=== PATIENT | male | born 1960 | race Caucasian/White ===

== ENCOUNTER 2020-07-21 04:53 | Observation (INO) ==
--- OUTSIDE RECORDS SUMMARY | 2020-07-21 04:56 | External Medical Summary | Continuity of Care Document ---
:1960 Author Name Ling Knight, Provider Address Unavailable Unavailable , Care Team Providers Name Role Phone Rufus Perdomo PA-C Unavailable [email or web address] Collins Mims M.D. 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 Antonia Mims Quantity: 90 Refills: 1 Lisinopril 5 MG Oral Tablet; TAKE 1 TABLET DAILY. Antonia Mims Quantity: 90 Refills: 1 Atorvastatin Calcium 80 MG Oral Tablet; TAKE 1 TABLET DAILY. Antonia Mims Quantity: 90 Refills: 3 Pantoprazole Sodium 20 MG Oral Tablet Delayed Release; TAKE 1 TABLET DAILY. MEAGAN Yuan Start: 15-Apr-2015 Quantity: 30 Refills: 0 Nitrostat 0.4 MG Sublingual Tablet Sublingual; TAKE DIRECTED. MEAGAN Perdomo Start: 19-Nov-2015 Quantity: 25 Refills: 1 Aspirin 81 MG TABS; TAKE 1 TABLET DAILY. Refills: 0 traMADol HCl - 50 MG Oral Tablet; TAKE 1 TABLET EVERY 6 HOURS NEEDED FOR BREAKTHROUGH PAIN. Quantity: 120 Refills: 0 Spironolactone-HCTZ 25-25 MG Oral Tablet; TAKE 1 TABLE T DAILY. Antonia Mims Start: 26-Mar-2014 Quantity: 90 Refills: 3 Folic Acid TABS; TAKE 1 TABLET DAILY DIRECTED. Refills: 0 Iron TABS; TAKE 1 TABLET DAILY DIRECTED. Refills: 0 Vitamin C TABS Refills: 0 Procedures History of Knee Surgery Right Status: Co mpleted History of Diagnostic Cystoscopy Status: Completed History of Cath Stent 1 Distal Right Coronary Artery Status: Completed Immunizations Immunizations not documented Family History Mother Family history of chronic obstructive pulmonary disease (V17 .6) Status: Active (Z82.5) Family history of congestive heart failure (V17.49) (Z82.49) Status: Active Father Family history of Dementia in other disease classified elsew here Status: Active with behavioral disturbance (294.8) (F02.81) Social History - Smoking Status Never smoked tobacco Plan of Treatment Planned Observations Planned Goals not documented Results No Known Results Results not documented Encounters Appointment; Rufus Perdomo PA-C 22-Apr-2018 14:30 Encounter Diagnosis: Problem not documented
--- OUTSIDE RECORDS SUMMARY | 2020-07-21 04:56 | External Medical Summary | Continuity of Care Document ---
:1960 Author Name Ling Knight, Provider Address Unavailable Unavailable , Care Team Providers Name Role Phone Rufus Perdomo PA-C Unavailable [email or web address] Collins Mims M.D. Unavailable [email or web address] Lissy RHODES Unavailable [email or web address] NEWHOUSER Unavailable Unavailable Unavailable Unavailable Unavailable Assessments [...] Reactions No Known Drug Allergies (Allergy) Medications Aspirin 81 MG TABS; TAKE 1 TABLET DAILY. Refills: 0 traMADol HCl - 50 MG Oral Tablet; TAKE 1 TABLET EVERY 6 HOURS NEEDED FOR BREAKTHROUGH PAIN. Quantity: 120 Refills: 0 Clopidogrel Bisulfate 75 MG Oral Tablet; TAKE 1 TABLET DAILY. Antonia Mims Quantity: 90 Refills: 1 Lisinopril 5 MG Oral Tablet; TAKE 1 TABLET DAILY. Antonia Mims Quantity: 90 Refills: 1 Atorvastatin Calcium 80 MG Oral Tablet; TAKE 1 TABLET DAILY. Antonia Mims Quantity: 90 Refills: 3 Vitamin C TABS Refills: 0 Iron TABS; TAKE 1 TABLET DAILY DIRECTED. Refills: 0 Folic Acid TABS; TAKE 1 TABLET DAILY DIRECTED. Refills: 0 Spironolactone-HCTZ 25-25 MG Oral Tablet; TAKE 1 TABLE T DAILY. Antonia Mims Start: 26-Mar-2014 Quantity: 90 Refills: 3 Nitrostat 0.4 MG Sublingual Tablet Sublingual; TAKE DIRECTED. MEAGAN Perdomo Start: 19-Nov-2015 Quantity: 25 Refills: 1 Pantoprazole Sodium 20 MG Oral Tablet Delayed Release; TAKE 1 TABLET DAILY. MEAGAN Yuan Start: 15-Apr-2015 Quantity: 30 Refills: 0 Procedures History of Cath Stent 1 Distal Right Coronary Artery Status: Completed History of Diagnostic Cystoscopy Status: Completed History of Knee Surgery Right Status: Co mpleted Immunizations Immunizations not documented Family History Mother [...]
[2020-07-21 05:31] LABS: Basophils # (auto) 0.06 K/uL (0-0.2); Basophils % (auto) 0.6 %; Eosinophils # (auto) 0.28 K/uL (0-0.5); Eosinophils % (auto) 2.8 %; Hematocrit (blood only) 43.8 % (42-52); Hemoglobin 15.1 g/dL (14.0-18.0); Immature Granulocytes # (auto) 0.03 K/uL (0.00-0.02); Immature Granulocytes % (auto) 0.3 %; Lymphocytes # (auto) 3.38 K/uL (1.2-3.4); Lymphocytes % (auto) 34.2 %; Mean Corpuscular Hemoglobin 28.9 pg (25-34); Mean Corpuscular Hgb Conc 34.5 g/dL (32-36); Mean Corpuscular Volume 83.9 fL (80-100); Mean Platelet Volume 9.2 fL (7.4-10.4); Monocytes # (auto) 0.59 K/uL (0.11-0.59); Neutrophils # (auto) 5.55 K/uL (1.4-6.5); Neutrophils % (auto) 56.1 %; Platelet Count 296 K/uL (130-400); RDW Coefficient of Variation 14.9 % (11.5-14.5); RDW Standard Deviation 46.7 fL (36.4-46.3); Red Blood Count 5.22 M/uL (4.7-6.1); White Blood Count 9.89 K/uL (4.8-10.8)
--- NOTE | 2020-07-21 05:37 | Emergency Department Note ---
Impression & Plan Brain TIA, Hypertension ED Provider Note NAME: EVIN MONAE AGE: 60 SEX: M ARRIVES VIA: Walk-In INFORMANT: Patient, and the patient's ED PROVIDER(S): Blaire Alberts DO CHIEF COMPLAINT: Numbness to the right hand and the right side of the face PLAN: Disposition: Admitted to the [facility] service Condition: Good MEDICAL DECISION MAKING: This is a 60-year-old male patient who presents to the emergency department after awaking this morning with numbness to the right side of his face and right hand. CT scan of the brain and CTA of the head and neck were all negative. The patient's initial presenting blood pressure was quite high but then a pressure came down nicely on its own. The numbness in the face and the right hand resolved on his own. Patient blood pressure is well controlled on its own. [facility]. Triage Nursing notes reviewed and agree with them. Additional history obtained from his Prior medical records reviewed Vital Signs: reviewed and remarkable for hypertension Differential diagnosis: Hypertensive urgency, anxiety, TIA, CVA Diagnostics interpreted by me: ECG: Normal sinus rhythm at a rate of 78 with a right bundle branch block. There were no obvious signs of ischemia and no ST segment elevation. This was compared to an EKG from 06/2014 and was significantly different. Cardiac Monitoring: Normal sinus rhythm at a rate of 80 Laboratory studies: See below Imaging studies: As per stat rad CT brain: No intracranial hemorrhage, mass-effect or edema. No evidence of acute cortical stroke. Visualized sinuses and mastoid air cells are clear. CTA head: No evidence of large vessel occlusion. CTA neck: No evidence of high-grade stenosis or occlusion. Small right vertebral artery. Calcified and noncalcified pulmonary nodules. Consultations: Dr. Herrera-neurology HPI: 60/M arrives for evaluation of numbness to the right side of the face and right hand. Patient states that he was feeling well before he went to bed last night but awoke this morning with numbness in the right side of his face and to his right hand. The patient has never had symptoms like this in the past. He denies any weakness. ROS: See above HPI for pertinent positives & negatives. A total of 10 systems reviewed and were otherwise negative. 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 There is numbness noted to the right side of the patient's face with light touch. Pupils are equal, round, and reactive to light. Extraocular eye muscles are intact and sclera are anicteric. Ears - bilaterally patent canals with noninjected tympanic membranes and no evidence of hemotympanum. Nose - moist nasal mucosa without discharge. Mouth - moist buccal mucosa. Oropharynx is nonerythematous and there is no tonsillar exudate or edema noted. Neck: Supple; no JVD, nuchal rigidity, cervical lymphadenopathy, or auscultated bruits. Heart: Regular rate and rhythm. There is a normal S1 and S2 with no murmurs, clicks, or gallops appreciated. Lungs: Clear to auscultation bilaterally with no wheezes, rales, or rhonchi. Abdomen: Soft, completely nontender, nondistended, with good bowel sounds. There are no palpable pulsatile masses or hepatosplenomegaly. There is no guard ing, rigidity, or rebound noted. Extremities: No evidence of cyanosis, clubbing, or edema. There are easily palpable peripheral pulses. Neuro:The patient is awake and alert, oriented to day, time, and place. Muscle strength is 5/5 in all 4 extremities. The patient has equal dermatology technician strength and equal pedal push and pull. There are no cerebellar signs. The patient does have numbness noted to the right side of his face as there is a sensation difference between both sides of the face. He also has numbness noted to the ventral and dorsal aspect of the right hand. ED COURSE: Times/Reassessments: 0505: The patient was evaluated and C9. A complete history and physical was performed. A full stroke assessment was performed. A twelve- lead EKG was obtained as described above. An order was placed for continuous cardiac monitoring. The patient was in a normal sinus rhythm at a rate of [address] scan of the brain, CTA of the head and neck. These were all unremarkable. 0640: They were reviewed with neurology and Dr. Herrera recommended the patient be admitted to the hospital for evaluation. I spoke with the [facility] Hospitalist Blaire Alberts DO Past Med/Surg History Medical History (Updated 07/22/20 @ 09:27 by Blaire Alberts DO) CAD (coronary artery disease) BMS distal RCA Dr. Mims 09/23/13 Familial hypercholesteremia HTN (hypertension) Lumbar spinal stenosis Migraine Obesity LILIAN (obstructive sleep apnea) Pulmonary embolism Surgical History (Updated 07/21/20 @ 08:28 by Zahira Sotelo PA-C) History of cystoscopy History of total knee arthroplasty Ruptured, tendon, quadriceps Family History (Updated 07/21/20 @ 08:29 by Zahira Sotelo PA-C) Mother , 65 Diabetes Coronary heart disease Hypertension Father , 60s Alcoholism Social History (Updated 07/21/20 @ 08:30 by Zahira Sotelo PA-C) Smoking Status: Never smoker Tobacco Type: Cigars Hx Alcohol Use: Yes Alcohol Intake Frequency: Monthly or Less Hx Substance Use: No Preferred Language: [place] Beliefs That Will Affect Care: None marital status: Current Living Situation: Family current occupational status: employed current occupation: [employer] Other Information That Helps Us Care for You: No Feels Safe at Home: Yes Assistive Devices: None Allergies Allergies Allergy/AdvReac Type Severity Reaction Status Date / Time cat dander Allergy Intermediate Wheezing Verified 07/21/20 05:35 Home Meds Home Medications Medication Instructions Recorded Confirmed aspirin [Aspirin Low Dose] 81 mg PO DAILY 07/21/20 07/21/20 atorvastatin 80 mg PO HS 07/21/20 07/21/20 ezetimibe 10 mg PO DAILY 07/21/20 07/21/20 furosemide [Lasix] 40 mg PO DAILY 07/21/20 07/21/20 naproxen 500 mg PO Q12 PRN 07/21/20 07/21/20 nitroglycerin [Nitrostat] 0.4 mg SUBLINGUAL UD PRN 07/21/20 07/21/20 pantoprazole 20 mg PO DAILY 07/21/20 07/21/20 spironolacton-hydrochlorothiaz 1 tab PO DAILY 07/21/20 07/21/20 tramadol 50 mg PO Q6H PRN 07/21/20 07/21/20 Results & Data (ED) Vital Signs Vital Signs - 24 hr 07/21/20 04:57 07/21/20 05:08 07/21/20 05:15 Temperature 36.2 C L Temperature Source Temporal Artery Scan Pulse Rate 82 85 Pulse Rate from SpO2 Sensor Respiratory Rate 20 18 Respiratory Effort / Characteristics Non-Labored Spontaneous Respiratory Depth Normal Blood Pressure 151/98 H 211/88 H Blood Pressure Mean 115 129 Pulse Oximetry 97 95 98 Oxygen Delivery Method Room Air Room Air Room Air Sepsis New/Unexplained Change in Mental Status N/A Sepsis Action Taken by Nursing No Action Required 07/21/20 06:09 07/21/20 06:11 Temperature Temperature Source Pulse Rate 74 65 Pulse Rate from SpO2 Sensor 65 Respiratory Rate 18 15 Respiratory Effort / Characteristics Respiratory Depth Blood Pressure 120/66 Blood Pressure Mean 84 Pulse Oximetry 94 Oxygen Delivery Method Room Air Sepsis New/Unexplained Change in Mental Status Sepsis Action Taken by Nursing Laboratory Data Result diagrams: 07/21/20 05:20 07/22/20 07:05 Lab Results 07/21/20 07/21/20 07/21/20 Range/Units 05:20 05:20 05:20 WBC 9.89 (4.8-10.8) K/uL RBC 5.22 (4.7-6.1) M/uL Hgb 15.1 (14.0-18.0) g/dL Hct 43.8 (42-52) % MCV 83.9 (80-100) fL MCH 28.9 (25-34) pg MCHC 34.5 (32-36) g/dL RDW Std Deviation 46.7 H (36.4-46.3) fL RDW Coeff of Ira 14.9 H (11.5-14.5) % Plt Count 296 (130-400) K/uL MPV 9.2 (7.4-10.4) fL Immature Gran % (Auto) 0.3 % Neut % (Auto) 56.1 % Lymph % (Auto) 34.2 % [place] % (Auto) 6.0 % Eos % (Auto) 2.8 % Baso % (Auto) 0.6 % Neut # (Auto) 5.55 (1.4-6.5) K/uL Lymph # (Auto) 3.38 (1.2-3.4) K/uL [place] # (Auto) 0.59 (0.11-0.59) K/uL Eos # (Auto) 0.28 (0-0.5) K/uL Baso # (Auto) 0.06 (0-0.2) K/uL Immature Gran # (Auto) 0.03 H (0.00-0.02) K/uL PT 10.3 (9.0-12.0) Seconds INR 1.0 (0.9-1.1) APTT 28.1 (21.0-31.0) Seconds PTT Ratio 1.1 Sodium 139 (136-145) mmol/L Potassium 3.4 L (3.5-5.1) mmol/L Chloride 104 (98-107) mmol/L Carbon Dioxide 30 (21-32) mmol/L Anion Gap 5.0 (3-11) BUN 19 H (7-18) mg/dl Creatinine 1.06 (0.6-1.4) mg/dl Est Cr Clr Drug Dosing 106.0 ml/min Est GFR ( Amer) 88.0 Est GFR (Non-Af Amer) 75.9 BUN/Creatinine Ratio 17.7 (10-20) Glucose 120 H (70-99) mg/dl Calcium 9.0 (8.5-10.1) mg/dl Magnesium 2.2 (1.8-2.4) mg/dl Total Bilirubin 0.8 (0.2-1) mg/dl AST 25 (15-37) U/L ALT 34 (12-78) U/L Alkaline Phosphatase 163 H (45-117) U/L Troponin I 0.029 (0-0.045) ng/ml Total Protein 7.7 (6.4-8.2) gm/dl Albumin 3.7 (3.4-5.0) gm/dl Globulin 4.0 (2.5-4.0) gm/dl Albumin/Globulin Ratio 0.9 (0.9-2) Blood Type Antibody Screen 07/21/20 Range/Units 05:35 WBC (4.8-10.8) K/uL RBC (4.7-6.1) M/uL Hgb (14.0-18.0) g/dL Hct (42-52) % MCV (80-100) fL MCH (25-34) pg MCHC (32-36) g/dL RDW Std Deviation (36.4-46.3) fL RDW Coeff of Ira (11.5-14.5) % Plt Count (130-400) K/uL MPV (7.4-10.4) fL Immature Gran % (Auto) % Neut % (Auto) % Lymph % (Auto) % [place] % (Auto) % Eos % (Auto) % Baso % (Auto) % Neut # (Auto) (1.4-6.5) K/uL Lymph # (Auto) (1.2-3.4) K/uL [place] # (Auto) (0.11-0.59) K/uL Eos # (Auto) (0-0.5) K/uL Baso # (Auto) (0-0.2) K/uL Immature Gran # (Auto) (0.00-0.02) K/uL PT (9.0-12.0) Seconds INR (0.9-1.1) APTT (21.0-31.0) Seconds PTT Ratio Sodium (136-145) mmol/L Potassium (3.5-5.1) mmol/L Chloride (98-107) mmol/L Carbon Dioxide (21-32) mmol/L Anion Gap (3-11) BUN (7-18) mg/dl Creatinine (0.6-1.4) mg/dl Est Cr Clr Drug Dosing ml/min Est GFR ( Amer) Est GFR (Non-Af Amer) BUN/Creatinine Ratio (10-20) Glucose (70-99) mg/dl Calcium (8.5-10.1) mg/dl Magnesium (1.8-2.4) mg/dl Total Bilirubin (0.2-1) mg/dl AST (15-37) U/L ALT (12-78) U/L Alkaline Phosphatase (45-117) U/L Troponin I (0-0.045) ng/ml Total Protein (6.4-8.2) gm/dl Albumin (3.4-5.0) gm/dl Globulin (2.5-4.0) gm/dl Albumin/Globulin Ratio (0.9-2) Blood Type O Positive Antibody Screen NEGATIVE Administered Medications Aspirin (Aspirin 81 Mg Ectab) 81 mg PO DAILY [facility]RO Stop: 08/20/20 11:59 Last Admin: 07/22/20 08:31 Dose: 81 mg Documented by: [id number] Admin: 07/21/20 13:23 Dose: 81 mg Documented by: [id number] Atorvastatin Calcium (Atorvastatin 40 Mg Tab) 80 mg PO HS [facility] Stop: 08/20/20 20:59 Last Admin: 07/21/20 20:52 Dose: 80 mg Documented by: [id number] Clopidogrel Bisulfate (Clopidogrel Bisulfate 75 Mg Tab) 75 mg PO QAM [facility] Stop: 08/21/20 08:59 Last Admin: 07/22/20 08:31 Dose: 75 mg Documented by: [id number] Ezetimibe (Ezetimibe 10 Mg Tablet) 10 mg PO DAILY [facility] Stop: 08/21/20 08:59 Last Admin: 07/22/20 08:32 Dose: 10 mg Documented by: [id number] Furosemide (Furosemide 40 Mg Tab) 40 mg PO DAILY [facility] Stop: 08/21/20 08:59 Last Admin: 07/22/20 08:31 Dose: 40 mg Documented by: [id number] HCTZ/Spironolactone (Spironolactone/Hctz 25-25) 1 tab PO DAILY [facility] Stop: 08/20/20 11:59 Last Admin: 07/22/20 08:32 Dose: 1 tab Documented by: [id number] Admin: 07/21/20 13:24 Dose: 1 tab Documented by: [id number] Pantoprazole Sodium (Pantoprazole 40 Mg Tab) 40 mg PO DAILY [facility]; Protocol Stop: 08/20/20 11:33 Last Admin: 07/22/20 08:31 Dose: 40 mg Documented by: [id number] Admin: 07/21/20 13:24 Dose: 40 mg Documented by: [id number] Discontinued Medications Clopidogrel Bisulfate (Clopidogrel Bisulfate 300 Mg Tab) 300 mg PO ONE ONE Stop: 07/21/20 16:01 Last Admin: 07/21/20 16:34 Dose: 300 mg Documented by: [id number] Enoxaparin Sodium (Enoxaparin Inj 40 Mg/0.4 Ml Syr) 40 mg SQ QAM [facility] Stop: 08/20/20 11:59 Last Admin: 07/21/20 13:24 Dose: 40 mg Documented by: [id number] Ioversol (Optiray 320 125ml) 125 ml IV ONCE ONE Stop: 07/21/20 06:14 Last Admin: 07/21/20 06:13 Dose: 117 ml Documented by: [id number] Miscellaneous Information (Nursing To Pharmacy Communication) 1 ea N/A TODAY [facility] Stop: 08/20/20 11:44 Last Admin: 07/21/20 19:21 Dose: Not Given Documented by: [id number] Potassium Chloride (Potassium Chloride Crtab 20 Meq Tabcr) 40 meq PO ONE ONE Stop: 07/21/20 16:01 Last Admin: 07/21/20 16:34 Dose: 40 meq Documented by: [id number] Discharge Plan Visit Data Chief Complaint: Neuro Symptoms/Deficit Stated Complaint: FACE TINGLY, RT SIDED NUMBNESS ED Provider: Blaire Alberts Discharge Problem: Brain TIA, Hypertension Patient Disposition: Admitted As Inpatient Discharge Instructions Interventions: ED Discharge Assessment Last Done: 07/21/20 10:36 Discharge Problem: Hypertension Qualifiers: Hypertension type: unspecified secondary hypertension Qualified Code(s): I15.9 - Secondary hypertension, unspecified
[2020-07-21 05:41] LABS: Partial Thromboplastin Ratio 1.1; Partial Thromboplastin Time 28.1 Seconds (21.0-31.0); Prothrombin Time 10.3 Seconds (9.0-12.0)
[2020-07-21 05:49] LABS: Albumin Level 3.7 gm/dl (3.4-5.0); BUN Creatinine Ratio 17.7 (10-20); Est GFR (Non-African American) 75.9; Magnesium 2.2 mg/dl (1.8-2.4); Potassium 3.4 mmol/L (3.5-5.1)
[2020-07-21 05:55] LABS: Albumin Globulin Ratio 0.9 (0.9-2); Bilirubin,Total 0.8 mg/dl (0.2-1); Total Protein 7.7 gm/dl (6.4-8.2); Troponin I 0.029 ng/ml (0-0.045)
[2020-07-21] MEDS ORDERED: OPTIRAY 320 125ml IV ONE (06:13)
--- NOTE | 2020-07-21 06:58 | CT Scan Report ---
CT head/brain wo con CLINICAL HISTORY: Stroke Like Symptoms COMPARISON STUDY: No previous studies for comparison. TECHNIQUE: Axial CT of the brain is performed from the vertex to the skull base. IV contrast was not administered for this examination. A dose lowering technique was utilized adhering to the principles of ALARA. CT DOSE: FINDINGS: No intra or extra-axial mass lesions are visualized. There is no CT evidence of acute cortical infarc tion. There is no evidence of midline shift. There is no acute hemorrhage. No calvarial fractures ar e visualized. There is no evidence of pathologic ventricular dilatation. There is no evidence of acute sinusitis IMPRESSION: No acute intracranial findings ACT 112: Negative or not required by law. Electronically signed by: Gary Villatoro M.D. 07/21/2020 6:57 AM
[2020-07-21] MEDS ORDERED: ALUMINUM/MAGNESIUM SUSP 30 ML UDC PO PRN (07:34)
[2020-07-21] MEDS ORDERED: POLYETHYLENE (MIRALAX) 17 GM PACK PO PRN (07:34)
[2020-07-21] MEDS ORDERED: NITROGLYCERIN SL 0.4 MG/TAB TAB SL PRN ×2 (07:34→11:34)
[2020-07-21] MEDS ORDERED: ACETAMINOPHEN 325 MG TAB PO PRN (07:34)
[2020-07-21] MEDS ORDERED: MAGNESIUM HYDROXIDE SUSP 30 ML UDC PO PRN (07:34)
[2020-07-21] MEDS ORDERED: ONDANSETRON INJ 2 MG/ML 2 ML VIAL IV PRN (07:34)
[2020-07-21] MEDS ORDERED: POTASSIUM CHLORIDE CRTAB 20 MEQ TABCR PO STA (07:38)
--- NOTE | 2020-07-21 07:42 | CT Scan Report ---
HEAD & NECK CTA HISTORY: Right-sided facial numbness. Stroke Like Symptoms TECHNIQUE: Multiaxial CT images of the head were performed following the intravenous administration o f contrast to evaluate the major cerebral vessels. Multiaxial CT images of the neck were also perform ed following the intravenous administration of contrast to evaluate the major cervical vessels. Maxim um intensity projection images were also obtained. A dose lowering technique was utilized adhering to the principles of ALARA. COMPARISON: Head CT 07/21/2020. FINDINGS: There is no mass, hematoma, midline shift, or acute infarct. Visualized intracranial internal carotid arteries, distal vertebral arteries, and basilar artery are widely patent. There is no significant s tenosis, occlusion, or aneurysm seen within the bilateral ACAs, MCAs, or item repair manager. Hypoplastic distal rig ht vertebral artery. The major dural venous sinuses are patent. The aortic arch and proximal great vessels are widely patent. There is no significant stenosis, occ lusion, or dissection identified within the bilateral common carotid, internal carotid, or vertebral arteries. Calcified mediastinal and right hilar lymph nodes. There is a calcified granuloma within th e right lung apex. Hypoplastic right vertebral artery. Mild calcified plaque within the bilateral car otid bifurcations. IMPRESSION: 1. No significant stenosis, occlusion, or aneurysm within the [place] of [place]. 2. No significant stenosis, occlusion, or dissection identified within the carotid or vertebral arter ies. ACT 112: Negative or not required by law. Electronically signed by: Madhav Parker M.D. 07/21/2020 7:41 AM
--- NOTE | 2020-07-21 07:42 | CT Scan Report ---
HEAD & NECK CTA HISTORY: Right-sided facial numbness. Stroke Like Symptoms TECHNIQUE: Multiaxial CT images of the head were performed following the intravenous administration o f contrast to evaluate the major cerebral vessels. Multiaxial CT images of the neck were also perform ed following the intravenous administration of contrast to evaluate the major cervical vessels. Maxim um intensity projection images were also obtained. A dose lowering technique was utilized adhering to the principles of ALARA. COMPARISON: Head CT 07/21/2020. FINDINGS: There is no mass, hematoma, midline shift, or acute infarct. Visualized intracranial internal carotid arteries, distal vertebral arteries, and basilar artery are widely patent. There is no significant s tenosis, occlusion, or aneurysm seen within the bilateral ACAs, MCAs, or office administrative assistant. Hypoplastic distal rig ht vertebral artery. The major dural venous sinuses are patent. The aortic arch and proximal great vessels are widely patent. There is no significant stenosis, occ lusion, or dissection identified within the bilateral common carotid, internal carotid, or vertebral arteries. Calcified mediastinal and right hilar lymph nodes. There is a calcified granuloma within th e right lung apex. Hypoplastic right vertebral artery. Mild calcified plaque within the bilateral car otid bifurcations. IMPRESSION: 1. No significant stenosis, occlusion, or aneurysm within the [place] of [place]. 2. No significant stenosis, occlusion, or dissection identified within the carotid or vertebral arter ies. ACT 112: Negative or not required by law. Electronically signed by: Madhav Parker M.D. 07/21/2020 7:41 AM
[2020-07-21] MEDS ORDERED: PHARMACIST DISCHARGE MED REC CONSULT PRN (07:47)
[2020-07-21] MEDS ORDERED: ASPIRIN 81 MG CHEW PO ONE (08:05)
--- NOTE | 2020-07-21 08:23 | History & Physical Report ---
Date of Service July 21, 2020 Assessment & Plan (1) TIA (transient ischemic attack): This is a 60 yr old M who has a significant PMH of CAD, Familial HLD, HTN, LILIAN on CPAP, GERD, hx of provoked PE, hx of migraine, lumbar spinal stenosis who presents to ED 2/2 to R sided numbness on face and arm prior to arrival. Pt with stroke like sx including R face and arm numbness, now resolved. Work up in ED negative for acute hemorrhagic CVA or intracranial pathology. Admit to med tele consult neurology obtain MRI brain echocardiogram PT/OT/ST fasting lipid pane, a1c in a.m. continue ASA, statin (2) Hypokalemia: K 3.4 replete on diuretics, monitor and replace as necessary (3) Acute electrocardiogram changes: pt with RBBB and LAFB, change from ecg of 2014 no chest pain, troponin WNL hx of CAD and prior [place] echocardiogram ordered (4) Prolonged QT interval: QTC 494ms, avoid QTC prolonging agents in able (5) CAD (coronary artery disease): continue ASA, Statin, [facility] (6) HTN (hypertension): BP controlled continue home meds (7) Familial hypercholesteremia: pt with genetic testing confirming diagnosis continue statin and Zetia recently taken off repatha due to joint pain fasting lipid panel in a.m. (8) LILIAN (obstructive sleep apnea): CPAP at HS pt mostly noncompliant with cpap at HS per (9) DVT prophylaxis: hx of provoked dvt following knee surgery dvt ppx with Lovenox Dispo: med tele PCP: Angelina Bailey FULL CODE Pt was seen and examined in collaboration with Dr. Crowe, please see addendum History of Present Illness Chief Complaint: R sided numbness to face and hand x few hours. Primary Care Provider: Miguel Bailey, This is a 60 yr old M who has a significant PMH of CAD, Familial HLD, HTN, LILIAN on CPAP, GERD, hx of provoked PE, hx of migraine, lumbar spinal stenosis who presents to ED 2/2 to R sided numbness on face and arm prior to arrival. Pt never experienced sx in past. His last known normal was prior to falling asleep last night. He awoke with R facial numbness and R hand numbness. Patient woke up this morning around 4:30 AM. He noted right half of tongue felt numb, "like I had Novocain." When he went to lift his arm he also felt his right hand to be numb. His last known well was prior to going to bed last evening. He woke up his and came to ER. While getting ready to come to ER symptoms transiently resolved but then came back. When he got into the ER in approximately 7 AM symptoms resolved and have not returned. and patient denied facial droop, slurred speech, difficulty swallowing or weakness. He denies any recent illness, fever, chills, sweats, lightheadedness, dizziness, syncope, change in vision, change in hearing, chest pain, shortness of breath, cough, URI symptoms, nausea, vomiting, abdominal pain, change in bowel or urinary habits. He does get occasional visual changes with migraine secondary to aura. In the past he used to get headache with migraine but now it is just aura with scotoma. He has never experienced any neurological change with migraines. He did not take any a.m. medications. In ED patient remained hemodynamically stable. Symptoms have resolved. He underwent CT head and CTA of head and neck which were unremarkable. Labs consistent with mild hypokalemia otherwise generally unremarkable. He will be admitted for further neurologic work-up. Allergies Allergy/AdvReac Type Severity Reaction Status Date / Time cat dander Allergy Intermediate Wheezing Verified 07/21/20 05:35 Home Medications Medication Instructions Recorded Confirmed Type aspirin [Aspirin Low Dose] 81 mg PO DAILY 07/21/20 07/21/20 History atorvastatin 80 mg PO HS 07/21/20 07/21/20 History ezetimibe 10 mg PO DAILY 07/21/20 07/21/20 History furosemide [Lasix] 40 mg PO DAILY 07/21/20 07/21/20 History naproxen 500 mg PO Q12 PRN 07/21/20 07/21/20 History nitroglycerin [Nitrostat] 0.4 mg SUBLINGUAL UD PRN 07/21/20 07/21/20 History pantoprazole 20 mg PO DAILY 07/21/20 07/21/20 History spironolacton-hydrochlorothiaz 1 tab PO DAILY 07/21/20 07/21/20 History tramadol 50 mg PO Q6H PRN 07/21/20 07/21/20 History Past Med/Surg History Medical History (Updated 07/21/20 @ 08:32 by Zahira Sotelo PA-C) CAD (coronary artery disease) BMS distal RCA Dr. Mims 09/23/13 Familial hypercholesteremia HTN (hypertension) Lumbar spinal stenosis Migraine Obesity LILIAN (obstructive sleep apnea) Pulmonary embolism Surgical History (Updated 07/21/20 @ 08:28 by Zahira Sotelo PA-C) History of cystoscopy History of total knee arthroplasty Ruptured, tendon, quadriceps Family History (Updated 07/21/20 @ 08:29 by Zahira Sotelo PA-C) Mother , 65 Diabetes Coronary heart disease Hypertension Father , 60s Alcoholism Social History (Updated 07/21/20 @ 08:30 by Zahira Sotelo PA-C) Smoking Status: Never smoker Tobacco Type: Cigars Hx Alcohol Use: Yes Alcohol Intake Frequency: Monthly or Less Hx Substance Use: No Preferred Language: New Zealander Beliefs That Will Affect Care: None marital status: Current Living Situation: Family current occupational status: employed current occupation: [employer] Other Information That Helps Us Care for You: No Feels Safe at Home: Yes Assistive Devices: None Review of Systems Review of Systems: All systems reviewed & are unremarkable except as noted in HPI & below Results & Data Results & Data ([facility]) Vital Signs (Past 12 Hours) Vital Signs Temp Pulse Pulse Resp BP BP Pulse Ox 07/21/20 08:03 60 18 125/71 95 07/21/20 06:58 64 18 127/60 97 07/21/20 06:11 65 15 120/66 94 07/21/20 06:09 74 18 07/21/20 05:15 98 07/21/20 05:08 85 18 211/88 H 95 07/21/20 04:57 36.2 C L 82 20 151/98 H 97 Diagnostic Findings CTA Neck and Head IMPRESSION: 1. No significant stenosis, occlusion, or aneurysm within the [place]. 2. No significant stenosis, occlusion, or dissection identified within the carotid or vertebral arteries. CT Head: FINDINGS: No intra or extra-axial mass lesions are visualized. There is no CT evidence of acute cortical infarction. There is no evidence of midline shift. There is no acute hemorrhage. No calvarial fractures are visualized. There is no evidence of pathologic ventricular dilatation. There is no evidence of acute sinusitis IMPRESSION: No acute intracranial findings Medications Administered Discontinued Medications Ioversol (Optiray 320 125ml) 125 ml IV ONCE ONE Stop: 07/21/20 06:14 Last Admin: 07/21/20 06:13 Dose: 117 ml Documented by: [id number] ECG Rate (beats per minute): 78 Rhythm: normal sinus Findings: + LAFB, + RBBB and + prolonged QT (494ms) COVID-19 Results Results COVID-19 Adm Lab Results: RBC 5.22 M/uL (4.7-6.1) 07/21/20 WBC 9.89 K/uL (4.8-10.8) 07/21/20 Hgb 15.1 g/dL (14.0-18.0) 07/21/20 Hct 43.8 % (42-52) 07/21/20 Plt Count 296 K/uL (130-400) 07/21/20 Neutrophils (%) (Auto) 56.1 % 07/21/20 Lymphocytes (%) (Auto) 34.2 % 07/21/20 Monocytes # (Auto) 0.59 K/uL (0.11-0.59) 07/21/20 Eosinophils # (Auto) 0.28 K/uL (0-0.5) 07/21/20 Immature Granulocyte % (Auto) 0.3 % 07/21/20 Neutrophils # (Auto) 5.55 K/uL (1.4-6.5) 07/21/20 Lymphocytes # (Auto) 3.38 K/uL (1.2-3.4) 07/21/20 Monocytes # (Auto) 0.59 K/uL (0.11-0.59) 07/21/20 Eosinophils # (Auto) 0.28 K/uL (0-0.5) 07/21/20 Basophils # (Auto) 0.06 K/uL (0-0.2) 07/21/20 Immature Granulocyte # (Auto) 0.03 K/uL (0.00-0.02) H 07/21/20 Na 139 mmol/L (136-145) 07/21/20 K 3.4 mmol/L (3.5-5.1) L 07/21/20 Cl 104 mmol/L (98-107) 07/21/20 CO2 30 mmol/L (21-32) 07/21/20 Anion Gap 5.0 (3-11) 07/21/20 BUN 19 mg/dl (7-18) H 07/21/20 Creatinine 1.06 mg/dl (0.6-1.4) 07/21/20 BUN/Creatinine Ratio 17.7 (10-20) 07/21/20 Glucose Level 120 mg/dl (70-99) H 07/21/20 Ca 9.0 mg/dl (8.5-10.1) 07/21/20 Total Bilirubin 0.8 mg/dl (0.2-1) 07/21/20 AST/SGOT 25 U/L (15-37) 07/21/20 ALT/SGPT 34 U/L (12-78) 07/21/20 Alkaline Phosphatase 163 U/L (45-117) H 07/21/20 Total Protein 7.7 gm/dl (6.4-8.2) 07/21/20 Albumin 3.7 gm/dl (3.4-5.0) 07/21/20 Globulin 4.0 gm/dl (2.5-4.0) 07/21/20 Albumin/Globulin Ratio 0.9 (0.9-2) 07/21/20 Troponin I 0.029 ng/ml (0-0.045) 07/21/20 PTT 28.1 Seconds (21.0-31.0) 07/21/20 INR 1.0 (0.9-1.1) 07/21/20 SARS-CoV-2, RNA, NAAT NEGATIVE (NEGATIVE) 07/21/20 Code Status & VTE Plan Code Status Full Code VTE Prophylaxis Plan VTE Prophylaxis will be ordered: Yes Supervising Physician Co-Signing Physician Notes Patient seen and examined, care coordinated with Zahira Rinaldi PA-C. This is 60-year-old male with a history of family or hypercholesterolemia, history of premature coronary artery disease status post PTCA of right coronary in 2013, had provoked PE in 2012 after knee replacement, completed anticoagulation Presented to ER today after experiencing brief episode of numbness on his left right side of face, right jaw, right arm and hand. Patient woke up with a sensation, no slurred speech no facial droop, no weakness, Reported and he felt that inside of his mouth is numb, feels like he had" Novocain " His symptom lasted almost half an hour, Came to ER, during our interview with the patient, patient was completely asymptomatic No weakness or paresthesia, no blurred vision no headache. Vitals stable. CT head noncontrast, no acute change CTA of head and neck: IMPRESSION: 1. No significant stenosis, occlusion, or aneurysm within the [place]. 2. No significant stenosis, occlusion, or dissection identified within the carotid or vertebral arteries Physical exam: General: No acute distress, alert awake oriented x3 HEENT: PERRLA, EOMI, Heart: Regular S1-S2, no carotid bruit, no JVD, no lower extremity edema Lungs: Clear to auscultate, no wheeze or rales Abdomen: Soft nontender, no organomegaly Extremity: No cyanosis, no deformity, normal strength 5 out of 5 with upper and lower Neuro: No focal neurological deficit normal speech, normal visual field, Motor strength : normal both upper and lower extremity, sensation intact Psych: Alert awake oriented x3, normal affect Strokelike symptoms/TIA: Transient episode of right-sided lack of sensation/numbness, no weakness, Symptoms has completely resolved Imaging studies shows no evidence of acute CVA, MRI of brain ordered, Continue home medication of statin, low-dose aspirin 81 mg daily Neurology consult hx of familiar hypercholesterolemia: Continue high dose of statin, Zetia, fasting lipid panel in a.m. Mague Crowe MD
[2020-07-21] MEDS ORDERED: ASPIRIN 81 MG CHEW PO SCH (09:00)
[2020-07-21] MEDS ORDERED: traMADol HCL 50 MG TABLET PO PRN (11:34)
[2020-07-21] MEDS ORDERED: NAPROXEN 250 MG TAB PO PRN (11:34)
[2020-07-21] MEDS ORDERED: Nursing to Pharmacy Communication SCH (11:45)
[2020-07-21] MEDS ORDERED: ENOXAPARIN INJ 40 MG/0.4 ML SYR SQ SCH (12:00)
--- NOTE | 2020-07-21 12:11 | Neurology Consultation ---
Date of Consultation July 21, 2020 Assessment & Plan (1) TIA (transient ischemic attack): 1. continue aspirin 81 mg and plavix 75 mg x 21 days then plavix alone for life 2. optimize HTN HLD LDL <70 3. PT/OT for discharge needs appear to be back at baseline 4. healthy diet and exercise - weight control 5. follow up in neurology 4-6 weeks after discharge 6. MRI no acute findings 7. CTA head and neck no significant stenosis Present on Admission?: Yes (2) Familial hypercholesteremia: 1. continue cholesterol medication LDL <70 Present on Admission?: Yes (3) CAD (coronary artery disease): 1. plavix will be continued for life after 21 days of DAPT Present on Admission?: Yes Supervising Physician Co-Signing Physician Notes I have seen and discussed above patient with Dr Clark Herrera, neurology I have interviewed and examined this man reviewed the above note and his chart and actually had discussed this case with our emergency room physicians at 630 this morning when he presented with a 2-hour history of right circumoral facial and thumb and index finger paresthesias onset upon awakening from sleep and of such uncertain duration as he was not felt to be a candidate to contact our stroke service Evaluation thus far is negative and all of his symptoms have cleared and he was significantly hypertensive at least in terms of systolic blood pressure upon presentation but now everything is back to baseline his exam is normal and the MRI scan shows no acute event in the region of the left thalamus or left parietal cortex where I clinically would have suspected a change to have been seen had a been a completed stroke and a CT angiography and echocardiographic studies are unremarkable revealing no potential source of embolism or intracranial stenosis Abdomen suggest that he be loaded with Plavix and maintained on dual antiplatelet therapy for 21 days, observed overnight until 24 hours time has elapsed since his presentation and then discharged if stable over the follow-up with his primary care physician and neurology in 3 weeks which time we may simply put him on pure Plavix as a single antiplatelet agent converting from aspirin which did not seem to be adequate to prevent this event to Plavix which hopefully will be His other risk factors are being aggressively managed now by his primary care physician but he probably needs to be observed for episodic surges in his blood pressure have swelling at home monitoring system If he remains asymptomatic tomorrow morning then he could be discharged with follow-up in our office in 3 to 4 weeks time Clark Herrera MD History of Present Illness Reason for Consultation: right sided numbness /TIA Requesting Physician: Mague Crowe MD Attending Physician: Mague Crowe MD History of Present Illness Chapito is a 60 year old male with a PMH- CAD, Familial HLD, HTN, LILIAN on CPAP, GERD, PE (after knee surgery), migraine, lumbar spinal stenosis who presents to ED 2/2 to R sided numbness on face and arm prior to arrival. He awoke with R facial numbness and R hand numbness. The right half of tongue felt numb, "like I had Novocain." When he went to lift his arm he also felt his right hand to be numb. When getting ready to come to the ER symptoms transiently resolved but then came back. There was no facial droop, slurred speech, difficulty swallowing or weakness. He does get occasional visual changes with migraine secondary to aura. He has never experienced any neurological change with migraines. He is feeling back to his basline. 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 He has ocular migraines and never with a complex component. there is no family history of stroke. He has been on aspirin since he had the bare metal stent place in his heart. denies CP, SOB, abdominal pain, one sided weakness numbness tingling, vision changes, N, V. Allergies Allergy/AdvReac Type Severity Reaction Status Date / Time cat dander Allergy Intermediate Wheezing Verified 07/21/20 05:35 Home Medications Medication Instructions Recorded Confirmed Type aspirin [Aspirin Low Dose] 81 mg PO DAILY 07/21/20 07/21/20 History atorvastatin 80 mg PO HS 07/21/20 07/21/20 History ezetimibe 10 mg PO DAILY 07/21/20 07/21/20 History furosemide [Lasix] 40 mg PO DAILY 07/21/20 07/21/20 History naproxen 500 mg PO Q12 PRN 07/21/20 07/21/20 History nitroglycerin [Nitrostat] 0.4 mg SUBLINGUAL UD PRN 07/21/20 07/21/20 History pantoprazole 20 mg PO DAILY 07/21/20 07/21/20 History spironolacton-hydrochlorothiaz 1 tab PO DAILY 07/21/20 07/21/20 History tramadol 50 mg PO Q6H PRN 07/21/20 07/21/20 History Patient History Medical History (Updated 07/21/20 @ 08:32 by Zahira Sotelo PA-C) CAD (coronary artery disease) BMS distal RCA Dr. Mims 09/23/13 Familial hypercholesteremia HTN (hypertension) Lumbar spinal stenosis Migraine Obesity LILIAN (obstructive sleep apnea) Pulmonary embolism Surgical History (Updated 07/21/20 @ 08:28 by Zahira Sotelo PA-C) History of cystoscopy History of total knee arthroplasty Ruptured, tendon, quadriceps Family History (Updated 07/21/20 @ 08:29 by Zahira Sotelo PA-C) Mother , 65 Diabetes Coronary heart disease Hypertension Father , 60s Alcoholism Social History (Updated 07/21/20 @ 08:30 by Zahira Sotelo PA-C) Smoking Status: Never smoker Tobacco Type: Cigars Hx Alcohol Use: Yes Alcohol Intake Frequency: Monthly or Less Hx Substance Use: No Preferred Language: Burmese Beliefs That Will Affect Care: None marital status: Current Living Situation: Family current occupational status: employed current occupation: [employer] Other Information That Helps Us Care for You: No Feels Safe at Home: Yes Assistive Devices: None Review of Systems Review of Systems: All systems reviewed & are unremarkable except as noted in HPI & below Physical Exam Physical Exam: Physical Exam: Constitutional: appearance over nourished, healthy Ears, Nose, Mouth and Throat: mucous membranes moist, no injection and skin normal, eyes normal Cardiovascular: normal S-1 and S-2 and regular rate and rhythm Respiratory: clear to auscultation (CTA) Musculoskeletal: no peripheral edema and good distal pulses Skin: no stigmata of neurocutaneous disease noted and normal and intact Eyes: extraocular muscles intact (EOMI) and pupils equal, round and reactive to light (PERRL) NEUROLOGIC EXAMINATION: Mental status: Alert and interactive Oriented to full date and location Oriented to person Speech fluent with no evidence of aphasia Cranial Nerves smile eye brow raise symmetric Reflexes: Deep tendon reflexes were symmetrical and graded 2/5. Sensory: light cool touch Coordination: finger to nose, heel to amrenta, rapid hand movements all intact Gait/Stance: Posture normal. Gait normal: with steady with steps, base, turning, heel and toe walking and tandem gait. Motor: Negative for pronator drift of out stretched arms with eyes closed. 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) Vital Signs (Past 12 Hours) Vital Signs Temp Pulse Pulse Resp BP BP Pulse Ox 07/21/20 10:36 49 L 18 135/75 97 07/21/20 09:30 49 L 16 139/68 97 07/21/20 08:03 60 18 125/71 95 07/21/20 06:58 64 18 127/60 97 07/21/20 06:11 65 15 120/66 94 07/21/20 06:09 74 18 07/21/20 05:15 98 07/21/20 05:08 85 18 211/88 H 95 07/21/20 04:57 36.2 C L 82 20 151/98 H 97 Laboratory Results Abnormal lab results 07/21/20 07/21/20 Range/Units 05:20 05:20 RDW Std Deviation 46.7 H (36.4-46.3) fL RDW Coeff of Ira 14.9 H (11.5-14.5) % Immature Gran # (Auto) 0.03 H (0.00-0.02) K/uL Potassium 3.4 L (3.5-5.1) mmol/L BUN 19 H (7-18) mg/dl Glucose 120 H (70-99) mg/dl Alkaline Phosphatase 163 H (45-117) U/L Diagnostic Findings TTE- EF 60-65% no ASD CT head- no acute abnormalites CTA head and neck-No significant stenosis, occlusion, or aneurysm within the [place]. No significant stenosis, occlusion, or dissection identified within the carotid or vertebral arteries. MRI brain- No acute intracranial abnormality.
[2020-07-21] MEDS: ASPIRIN 81 MG ECTAB PO SCH (13:23)
[2020-07-21] MEDS: PANTOprazole 40 MG TAB PO SCH (13:24)
[2020-07-21] MEDS: SPIRONOLACTONE/HCTZ 25-25 PO SCH (13:24)
--- NOTE | 2020-07-21 13:26 | Magnetic Resonance Report ---
MRI OF THE BRAIN COMBO CLINICAL HISTORY: Transient ischemic attack. COMPARISON STUDY: CT of the brain dated 07/21/2020. TECHNIQUE: MRI of the brain was performed utilizing various T1 and T2-weighted sequences in the axial , sagittal, and coronal planes. Contrast-enhanced sequences were acquired following the administratio n of 14 cc of Gadavist. FINDINGS: Brain parenchyma: There is minimal microangiopathic change. There is no hemorrhage or mass effect. Th ere is no restricted diffusion to suggest acute ischemia. No enhancing mass lesion is identified on t he postcontrast images. Cole-white matter differentiation is preserved. No extra-axial fluid collecti on is seen. The cerebellar tonsils are normal in configuration. Ventricles, sulci, and cisterns: Normal in configuration. Pituitary and sella: Unremarkable. Intracranial vasculature: Normal flow voids are maintained at the skull base. Orbits: The bony orbits are grossly intact. Orbital contents are normal in appearance. Sinuses and mastoids: The paranasal sinuses are clear. There is a large right mastoid effusion. The l eft mastoid air cells are clear. Calvarium: Unremarkable. Cervical cord: Partially visualized cervical spinal cord is normal in morphology and signal intensity . IMPRESSION: No acute intracranial abnormality. ACT 112: Negative or not required by law. Electronically signed by: Mike Ghotra M.D. 07/21/2020 1:24 PM
--- NOTE | 2020-07-21 15:43 | Communication Note ---
Date of Service: July 21, 2020 Patient admitted with TIA-like symptoms, detailed neuro imaging was negative for any acute CVA. Appreciate input from neurology, Neurology recommends: Start patient on loading dose of Plavix, 300 mg p.o. x1 dose ordered for today Patient will continue with aspirin 81 mg daily and Plavix 75 mg daily(dual antiplatelet therapy) 21 days Discontinue aspirin 81 mg Should be on the Plavix 75 mg daily for lifelong. Neurology follow-up in 3-4 weeks Patient will be observed overnight in telemetry, plan for discharge home tomorrow if remains medically stable Mague Crowe MD
[2020-07-21] MEDS ORDERED: POTASSIUM CHLORIDE CRTAB 20 MEQ TABCR PO ONE (16:00)
[2020-07-21] MEDS ORDERED: CLOPIDOGREL BISULFATE 300 MG TAB PO ONE (16:00)
[2020-07-21] MEDS ORDERED: ATORVASTATIN 40 MG TAB PO SCH (21:00)
--- NOTE | 2020-07-22 05:44 | Electrocardiogram Report ---
Test Reason : Blood Pressure : / mmHG Vent. Rate : 078 BPM Atrial Rate : 078 BPM P-R Int : 178 ms QRS Dur : 142 ms QT Int : 434 ms P-R-T Axes : 056 -45 -33 degrees QTc Int : 494 ms Normal sinus rhythm Right bundle branch block Left anterior fascicular block Bifascicular block Minimal voltage criteria for LVH, may be normal variant Abnormal ECG When compared with ECG of 25-JUN-2014 06:28, (RBBB and left anterior fascicular block) is now Present Confirmed by Sebastien Rodriguez ([id number]) on 07/22/2020 5:43:33 AM Referred By: REFERRED SELF Confirmed By:Sebastien Rodriguez
[2020-07-22 07:37] LABS: Estimated Average Glucose 143 mg/dl; Hemoglobin A1C 6.6 % (4.5-5.6)
[2020-07-22 07:45] LABS: BUN Creatinine Ratio 19.9 (10-20); Calcium 9.5 mg/dl (8.5-10.1); Creatinine Clr Calc Pharmacy 122.4 ml/min; Est GFR (African American) 107.2; Est GFR (Non-African American) 92.5; Magnesium 2.3 mg/dl (1.8-2.4); Potassium 3.7 mmol/L (3.5-5.1)
[2020-07-22] MEDS: ASPIRIN 81 MG ECTAB PO SCH (08:31)
[2020-07-22] MEDS: PANTOprazole 40 MG TAB PO SCH (08:31)
[2020-07-22] MEDS: SPIRONOLACTONE/HCTZ 25-25 PO SCH (08:32)
[2020-07-22] MEDS ORDERED: EZETIMIBE 10 MG TABLET PO SCH (09:00)
[2020-07-22] MEDS ORDERED: CLOPIDOGREL BISULFATE 75 MG TAB PO SCH (09:00)
[2020-07-22] MEDS ORDERED: ASPIRIN 81 MG ECTAB PO SCH (09:00)
[2020-07-22] MEDS ORDERED: FUROSEMIDE 40 MG TAB PO SCH (09:00)
[2020-07-22] MEDS ORDERED: STROKE PATIENT DISCHARGE STA (12:56)
--- NOTE | 2020-07-22 13:21 | Pharmacy Report ---
Pharmacist Stroke Counseling - Date of Service July 22, 2020 - Scope: Pharmacy has been consulted to provide medication discharge counseling for this patient admitted with TIA as per the Pharmacist Discharge Counseling for Stroke Patients Protocol. - Medications on Discharge: Home Medications Medication Instructions Recorded Confirmed aspirin [Aspirin Low Dose] 81 mg PO DAILY 07/21/20 07/21/20 atorvastatin 80 mg PO HS 07/21/20 07/21/20 ezetimibe 10 mg PO DAILY 07/21/20 07/21/20 furosemide [Lasix] 40 mg PO DAILY 07/21/20 07/21/20 naproxen 500 mg PO Q12 PRN 07/21/20 07/21/20 nitroglycerin [Nitrostat] 0.4 mg SUBLINGUAL UD PRN 07/21/20 07/21/20 pantoprazole 20 mg PO DAILY 07/21/20 07/21/20 spironolacton-hydrochlorothiaz 1 tab PO DAILY 07/21/20 07/21/20 tramadol 50 mg PO Q6H PRN 07/21/20 07/21/20 New Rx's Medication Instructions Recorded clopidogrel 75 mg PO QAM 30 Days #30 tab 07/22/20 metformin 500 mg PO UD #60 tab 07/22/20 - Action: The above medications, specifically ones for stroke treatment/prophylaxis, have been reviewed in detail with the patient and/or patient manufacturer's service representative(s) prior to discharge. This includes indication, common adverse reactions, drug interactions, and medication administration. Medication counseling has been employed using the teach-back method to ensure understanding. - Outcome: The patient and/or patient manufacturer's service representative(s) have demonstrated understanding of the medications. Additional comments: Spoke over the phone with Chapito king. Reviewed new medications to prevent stroke including Aspirin, Plavix, Zetia and Atorvastatin. Discussed why they are being used and common side effects in great detail. Reviewed how to use the medications, what to do if doses are missed, common drug interactions, common side effects, what to watch out for while using the medications, and how to store the medications. Also reviewed new medication of metformin with the patient. Reviewed common side effects (Gi upset, diarrhea) and recommended taking it with food (specifically dinner) to minimize SE. Pt verbalized understanding and restated the feng points of each medication. Thank you for allowing pharmacy to be involved in the care of this patient. Please call [phone] with any additional questions
--- NOTE | 2020-07-22 14:25 | Hospitalist Progress Note ---
Date of Service July 22, 2020 Assessment & Plan (1) TIA (transient ischemic attack): This is a 60 yr old M who has a significant PMH of CAD, Familial HLD, HTN, LILIAN on CPAP, GERD, hx of provoked PE, hx of migraine, lumbar spinal stenosis who presents to ED 2/2 to R sided numbness on face and arm prior to arrival. presented with stroke like sx including R face and arm numbness, now resolved. Work up in ED negative for acute hemorrhagic CVA or intracranial pathology. MRI of brain no acute CVA appreciate input from Neurology started pt on dual antiplatelets : Plavix 75 mg daily ( already on Aspirin 81 mg daily ) , cont both for 21 days then dc Aspirin Plavix 75 mg for life Neurology follow up in 3-4 weeks Type 2 DM : new Diagnosed HB A1c 6.6 asthma educator consulted , pt given information regarding blood sugar check , diet and exercise started on Metformin 500 mg daily start day after tomorr/Monday 07/24 ( received IV contrast yesterday ) for 1 week , then increase dose twice daily Follow up with family physician for diabetic management (2) Hypokalemia: replaced (3) Acute electrocardiogram changes: no evidence of ACS no chest pain, troponin WNL hx of CAD and prior [place] echocardiogram : no wall motion abnormality cont previous cardiac meds , dual antiplatelet therapy for TIA as above (4) Prolonged QT interval: QTC 494ms, avoid QTC prolonging agents in able (5) CAD (coronary artery disease): no acute issue continue ASA, Statin, [facility] (6) HTN (hypertension): BP controlled continue home meds (7) Familial hypercholesteremia: pt with genetic testing confirming diagnosis continue statin and Zetia recently taken off repatha due to joint pain fasting lipid panel shows LDL 113 ( above the goal of 70 ) follow up with family physician for further meds adjustment for high cholesterol (8) LILIAN (obstructive sleep apnea): CPAP at HS pt mostly noncompliant with cpap at HS per (9) DVT prophylaxis: hx of provoked dvt following knee surgery dvt ppx with Lovenox PCP: [facility] follow scheduled FULL CODE discharged home today Admission and Anticipated Discharge Date Admission Date: July 21, 2020 Subjective Follow up visit for TIA : feels fine , no rt sided weakness or paresthesia no gait disturbance , ambulating independently vitals stable ready to be discharged home today Review of Systems Review of Systems: All systems reviewed & are unremarkable except as noted in HPI & below Physical Exam Constitutional: WD/WN, vitals as above Eyes: PERRL, conjunctivae normal, anicteric sclerae ENMT: external ear and nose normal, oropharynx normal Neck: trachea midline, no thyromegaly Respiratory: normal respiratory effort, lungs clear to auscultation Cardiovascular: RRR, no murmur, no edema Gastrointestinal (Abdomen): normal bowel sounds, soft, nontender, no hepatosplenomegaly Musculoskeletal: no cyanosis or clubbing, extremities motor strength 5/5 Skin: no rashes, warm and dry Neurologic: PERRL, EOMI, accommodation nl, no face palsy, no dysarthria Psychiatric: A+Ox3, euthymic affect Results & Data Results & Data ([facility]) Vital Signs (Past 12 Hours) Vital Signs Temp Pulse Pulse Resp BP Pulse Ox 07/22/20 13:18 36.9 C 58 L 20 142/85 H 95 07/22/20 11:07 36.9 C 58 L 20 142/85 H 95 07/22/20 08:00 53 L 96 07/22/20 07:23 36.9 C 56 L 18 128/78 94 07/22/20 03:40 36.5 C 57 L 18 138/79 96
--- NOTE | 2020-07-22 14:28 | Discharge Summary ---
Date of Service July 22, 2020 Admission HPI Per Admitting Provider This is a 60 yr old M who has a significant PMH of CAD, Familial HLD, HTN, LILIAN on CPAP, GERD, hx of provoked PE, hx of migraine, lumbar spinal stenosis who presents to ED 2/2 to R sided numbness on face and arm prior to arrival. Pt never experienced sx in past. His last known normal was prior to falling asleep last night. He awoke with R facial numbness and R hand numbness. Patient woke up this morning around 4:30 AM. He noted right half of tongue felt numb, "like I had Novocain." When he went to lift his arm he also felt his right hand to be numb. His last known well was prior to going to bed last evening. He woke up his and came to ER. While getting ready to come to ER symptoms transiently resolved but then came back. When he got into the ER in approximately 7 AM symptoms resolved and have not returned. and patient denied facial droop, slurred speech, difficulty swallowing or weakness. He denies any recent illness, fever, chills, sweats, lightheadedness, dizziness, syncope, change in vision, change in hearing, chest pain, shortness of breath, cough, URI symptoms, nausea, vomiting, abdominal pain, change in bowel or urinary habits. He does get occasional visual changes with migraine secondary to aura. In the past he used to get headache with migraine but now it is just aura with scotoma. He has never experienced any neurological change with migraines. He did not take any a.m. medications. In ED patient remained hemodynamically stable. Symptoms have resolved. He underwent CT head and CTA of head and neck which were unremarkable. Labs consistent with mild hypokalemia otherwise generally unremarkable. He will be admitted for further neurologic work-up. Principal Diagnosis TIA /right sided numbness -resolved Type 2 DM Discharge Data Allergies Allergy/AdvReac Type Severity Reaction Status Date / Time cat dander Allergy Intermediate Wheezing Verified 07/21/20 05:35 Consultations 07/21/20 06:46 ED Decision to Admit Stat 07/21/20 07:34 Consult Neurology Routine 07/21/20 07:36 Consult Case Management - Discharge Planning Routine Ordered Studies 07/21/20 05:17 CT angio head w con Urgent CT angio neck with con Urgent CT head/brain wo con Urgent 07/21/20 07:47 MR brain wo/w con Routine Hospital Course (1) TIA (transient ischemic attack): This is a 60 yr old M who has a significant PMH of CAD, Familial HLD, HTN, LILIAN on CPAP, GERD, hx of provoked PE, hx of migraine, lumbar spinal stenosis who presents to ED 2/2 to R sided numbness on face and arm prior to arrival. presented with stroke like sx including R face and arm numbness, now resolved. Work up in ED negative for acute hemorrhagic CVA or intracranial pathology. 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 , pt given information regarding blood sugar check , diet and exercise started on Metformin 500 mg daily start day after tomorr/Monday 07/24 ( received IV contrast yesterday ) for 1 week , then increase dose twice daily Follow up with family physician for diabetic management (2) Hypokalemia: replaced (3) Acute electrocardiogram changes: no evidence of ACS no chest pain, troponin WNL hx of CAD and prior [place] echocardiogram : no wall motion abnormality cont previous cardiac meds , dual antiplatelet therapy for TIA as above (4) Prolonged QT interval: QTC 494ms, avoid QTC prolonging agents in able (5) CAD (coronary artery disease): no acute issue continue ASA, Statin, [facility] (6) HTN (hypertension): BP controlled continue home meds (7) Familial hypercholesteremia: pt with genetic testing confirming diagnosis continue statin and Zetia recently taken off repatha due to joint pain fasting lipid panel shows LDL 113 ( above the goal of 70 ) follow up with family physician for further meds adjustment for high cholesterol (8) LILIAN (obstructive sleep apnea): CPAP at HS pt mostly noncompliant with cpap at HS per (9) DVT prophylaxis: hx of provoked dvt following knee surgery dvt ppx with Lovenox PCP: [facility] follow scheduled FULL CODE discharged home today Total Time Total Time Spent Total Time Spent (In Minutes): approx 40 mins Total Time Includes: Examination of the Patient, Discharge Planning and Medication Reconciliation Discharge Plan Discharge Items Patient Disposition: Home - Self-Care Reason For Visit: FACE TINGLY, RT SIDED NUMBNESS Discharge Diagnosis: TIA /right sided numbness -resolved Type 2 DM Activity: Resume your previous activity Non-emergency contact: Primary Care Provider Call non-emergency contact if: you have any medication questions Follow-up/Referrals: Clark Herrera MD [Physician] - 07/28/20 4:20 pm (Date & Time 07/28/2020 4:20 PM Provider Clark Herrera MD Department Neurology [facility] ) Miguel Bailey DO [Primary Care Provider] - 07/26/20 1:40 pm (Date & Time 07/26/2020 1:40 PM Provider Miguel Bailey DO Department Family Practice [facility] ) Diet: Carb Consistent or DM2 and Heart Healthy Addtl Attending Provider Instructions: Please take all medications as instructed on discharge list below. It is recommended that you follow-up with your primary care physician within 1-2 weeks of hospital discharge to ensure you are still doing well. Please call if you have any questions or problems. You can reach a [facility] hospitalist on duty at [facility] 24 hours a day by calling [phone] New Medication : * you are started on additional medication : Plavix 75 mg 1 tablet daily ( take it with food-to prevent injury to you stomach wall -causing ulcer and bleeding ) , Take Aspirin and Plavix for 21 days , then stop taking Aspirin and continue Plavix for life long . * Combination of Aspirin and Plavix can cause -stomach ulcer and bleeding .please notify your family physician if you notice dark /tarry color stool - sign of bleeding in you stomach * your Bad Cholesterol LDL in 113 which is above the goal of 70 , please follow up with your family physician for medication to reduce cholesterol level - preventive measure for future heart attack , stroke * You are diagnosed with Diabetes : diabetic med: Metformin 500mg with dinner daily ( start taking from Sunday07/24/20 ) for 1 week / then increase the dose to 500 mg 1 tablet twice daily with breakfast and dinner meal repeat HbA1c check in 3 months to assess your blood sugar level Addtl Dock Pumper Provider Instructions: Do not take Naproxen and avoid group of medications belonging to NSAIDs group - can cause injury to you stomach wall -causing ulcer and bleeding ( while taking aspirin and Plavix ) List Of these medications includes but not limited to: Diclofenac Ibuprofen, Motrin, Advil Toradol,ketorolac Naproxen, Aleve, Naprosyn You can take Tylenol as needed for pain or fever When buying [id number] pain medications please consult with pharmacy if you are not sure regarding ingredients, as a lot of the pain medications have combination of NSAIDs and Tylenol. Pending Studies at Discharge: No Stand-Alone Forms: My [facility], Smoking Cessation Medications and DC Order Prescriptions: New clopidogrel 75 mg Tablet 75 mg PO QAM 30 Days Qty: 30 RF: 3 metformin 500 mg tablet 500 mg PO UD Qty: 60 RF: 0 Continued spironolacton-hydrochlorothiaz 25-25 mg tablet 1 tab PO DAILY RF: 0 pantoprazole 20 mg tablet,delayed release (DR/EC) 20 mg PO DAILY RF: 0 atorvastatin 80 mg Tablet 80 mg PO HS RF: 0 aspirin [Aspirin Low Dose] 81 mg Tablet,Delayed Release (Dr/Ec) 81 mg PO DAILY RF: 0 tramadol 50 mg Tablet 50 mg PO Q6H PRN (Reason: Pain) RF: 0 nitroglycerin [Nitrostat] 0.4 mg Tablet, Sublingual 0.4 mg sublingual UD PRN (Reason: Chest Pain) RF: 0 furosemide [Lasix] 40 mg Tablet 40 mg PO DAILY RF: 0 ezetimibe 10 mg Tablet 10 mg PO DAILY RF: 0 Discontinued naproxen 500 mg tablet 500 mg PO Q12 PRN (Reason: Pain) RF: 0 Discharge Orders: Discharge Order (Routine); Ordered 07/22/20 Ordered By: Mague Anthony/Other Patient Handouts: Exercise to Manage Your Blood Sugar, 5 Steps for Eating Healthier, A1C Admission Data Admit Date/Time: 07/21/20 07:34 Attending Provider: Mague Crowe Admit Provider: Mague Crowe Primary Care Provider: Miguel Bailey Other Providers: Juan R Middleton ; Clark Herrera Other Interventions: Discharge Summary Assessment (RN) Last Done: 07/22/20 13:18
== END 2020-07-22 14:40 | disposition home or self-care (01) ==
LOC: 2N 04:53 → ED 04:53 → 2N 10:36